=== PATIENT | male | born 1980 | race Caucasian/White ===

== ENCOUNTER 2019-08-19 14:36 | Inpatient (IN) | payer BC, OTHER ==
[~2019-08-19] VITALS: Ht 190.5 cm; Wt 122.8 kg
[2019-08-19 15:32] LABS: Basophils # (auto) 0.1 uL; Basophils % (auto) 0.8 % (0.0-2.0); Eosinophils # (auto) 0.1 uL; Eosinophils % (auto) 0.7 % (0.0-7.0); Hematocrit 46.1 % (41.0-53.0); Hemoglobin 15.9 g/dL (13.5-17.5); Lymphocytes # (auto) 2.8 uL; Mean Corpuscular Hemoglobin 33.1 pg (28.0-32.0); Mean Corpuscular Hgb Conc. 34.4 g/dL (32.0-36.0); Mean Corpuscular Volume 96.2 fL (80.0-100.0); Monocytes # (auto) 0.9 uL; Monocytes % (auto) 7.3 % (0.0-12.0); Neutrophils # (auto) 8.4 uL; Neutrophils % (auto) 68.2 % (37.0-80.0); Nucleated Red Blood Cells % 0.1 %; Platelet Count (auto) 351 10^3/uL (140-450); Red Cell Distribution Width 13.1 % (11.8-14.3); White Blood Cell 12.2 10^3/uL (4.4-10.8)
[2019-08-19 16:05] LABS: INR 1.01 (0.9-1.15); Partial Thromboplastin Time 27.9 sec (23.64-32.05)
[2019-08-19 16:10] LABS: Albumin 3.3 g/dL (3.4-5.0); Anion Gap 10 (5-15); Blood Urea Nitrogen 12 mg/dL (7-18); Calcium 8.6 mg/dL (8.5-10.1); Carbon Dioxide 22 mmol/L (21-32); Chloride 109 mmol/L (98-107); GFR African American 117 mL/min; GFR Non-African American 96 mL/min; Glucose 127 mg/dL (74-106); Magnesium 1.7 mg/dL (1.6-2.6); Potassium 3.4 mmol/L (3.5-5.1); Sodium 141 mmol/L (136-145)
[2019-08-19 16:15] LABS: Alanine Aminotransferase 52 U/L (16-61); Alkaline Phosphatase 50 U/L (45-117); Aspartate Aminotransferase 24 U/L (15-37); Bilirubin, Total 0.4 mg/dL (0.2-1.0); Total Protein 6.8 g/dL (6.4-8.2)
[2019-08-19] MEDS ORDERED: AMIODARONE HCL 150 MG in D5W 5% 100 ML IV ONE (18:00)
[2019-08-19] MEDS ORDERED: AMIODARONE HCL 900 MG in DEXTROSE 500 ML IV SCH (18:09)
[2019-08-19] MEDS ORDERED: ONDANSETRON HCL 4 MG/2 ML VIAL IV ONE (18:15)
[2019-08-19] MEDS ORDERED: MORPHINE SULF INJ 2 MG/ML SYRINGE 1ML IV ONE (18:15)
[2019-08-19] MEDS ORDERED: SODIUM CHLORIDE 0.9% 1,000 ML IV ONE ×2 (18:15→20:30)
[2019-08-19] MEDS ORDERED: ONDANSETRON HCL 4 MG/2 ML VIAL ONE (18:17)
[2019-08-19] MEDS ORDERED: MORPHINE SULF INJ 2 MG/ML SYRINGE 1ML ONE (18:17)
[2019-08-19] MEDS ORDERED: NITROGLYCERIN 50MG/250ML 250 ML IV ONE (19:30)
[2019-08-19] MEDS ORDERED: NITROGLYCERIN 50MG/250ML 250 ML IV SCH (19:30)
[2019-08-19] MEDS ORDERED: ACETAMINOPHEN 500 MG TAB PO PRN (19:45)
[2019-08-19] MEDS ORDERED: LORazepam 0.5 MG TAB PO PRN (19:45)
[2019-08-19] MEDS ORDERED: LACTULOSE 20Gm/30ML SOLN PO PRN (19:45)
[2019-08-19] MEDS ORDERED: MORPHINE SULF INJ 2 MG/ML SYRINGE 1ML IV PRN (19:45)
[2019-08-19] MEDS ORDERED: DEXTROSE (50%) 50ML SYRG IV PRN (19:45)
[2019-08-19] MEDS ORDERED: PROMETHAZINE HCL 25 MG/ML 1ML IV PRN (19:45)
[2019-08-19] MEDS ORDERED: NITROGLYCERIN 0.4 MG SL TAB SL PRN (19:45)
[2019-08-19] MEDS ORDERED: ATORVASTATIN 20 MG TAB PO ONE (20:30)
[2019-08-19] MEDS ORDERED: CLOPIDOGREL BISULFATE 75 MG TAB PO SCH (20:30)
[2019-08-19] MEDS ORDERED: METOPROLOL TARTRATE 25 MG TAB PO ONE (20:30)
[2019-08-19] MEDS ORDERED: ENOXAPARIN SOD 120 MG/0.8 ML SYRINGE SC ONE (20:30)
[2019-08-19] MEDS: SODIUM CHLORIDE 0.9% 1,000 ML IV SCH (21:06)
[2019-08-19] MEDS: ACCU-CHEK COMFORT CURVE STRIP VI SCH (22:10)
--- NOTE | 2019-08-19 23:17 | NUR ---
Telemetry admit from [facility] admitted to Telemetry unit after SBAR received. Patient oriented to Carie cervantes RN, unit, room, bed, and unit policies regarding patient care and visiting hours. Patient now on continuous telemetry monitoring, tele box # 15 and telemetry reading on arrival to unit is SR 60. Patient placed on bedside oxygen, weighed by bed scale and encouraged to call if they need something. All questions and concerns addressed, patient verbalized understanding. Note: Came per stretcher awake alert oriented x 4, placed in the bed comfortably, vital signs checked, routine admission care done.
[2019-08-19] MEDS: traMADol HCL 50 MG TAB PO PRN (23:40)
[2019-08-19 23:50] VITALS: BP 116/83
[2019-08-20] MEDS ORDERED: AMIODARONE HCL 900 MG in DEXTROSE 500 ML IV SCH (00:09)
[2019-08-20 01:52] LABS: Alcohol, Urine < 3.0 mg/dL (0-5); Amphetamine Screen, Urine NEGATIVE (NEGATIVE); Barbiturate Scree,Urine NEGATIVE (NEGATIVE); Benzodiazephine Screen, Urine NEGATIVE (NEGATIVE); Cannabinoid Screen, Urine NEGATIVE (NEGATIVE); Cocaine Screen, Urine NEGATIVE (NEGATIVE); Opiate Scree,Urine POSITIVE (NEGATIVE); Phencyclidine Screen, Urine NEGATIVE (NEGATIVE)
[2019-08-20] MEDS ORDERED: ENOXAPARIN SOD 120 MG/0.8 ML SYRINGE SC SCH (03:45)
[2019-08-20] MEDS: SODIUM CHLORIDE 0.9% 1,000 ML IV SCH ×3 (04:30→21:39)
[2019-08-20 05:30] VITALS: BP 107/67
[2019-08-20] MEDS: ACCU-CHEK COMFORT CURVE STRIP VI SCH (06:51)
[2019-08-20 07:03] LABS: Basophils # (auto) 0.1 uL; Basophils % (auto) 0.8 % (0.0-2.0); Eosinophils # (auto) 0.1 uL; Eosinophils % (auto) 0.9 % (0.0-7.0); Hematocrit 43.5 % (41.0-53.0); Hemoglobin 15.1 g/dL (13.5-17.5); Lymphocytes # (auto) 2.6 uL; Lymphocytes % (auto) 23.7 % (10.0-50.0); Mean Corpuscular Hemoglobin 33.2 pg (28.0-32.0); Mean Corpuscular Hgb Conc. 34.7 g/dL (32.0-36.0); Mean Corpuscular Volume 95.9 fL (80.0-100.0); Monocytes # (auto) 0.8 uL; Monocytes % (auto) 7.6 % (0.0-12.0); Neutrophils # (auto) 7.3 uL; Platelet Count (auto) 315 10^3/uL (140-450); Red Blood Cells 4.53 10^6/uL (4.5-5.90); Red Cell Distribution Width 13.2 % (11.8-14.3); White Blood Cell 10.8 10^3/uL (4.4-10.8)
[2019-08-20 07:26] LABS: Chloride 108 mmol/L (98-107); Potassium 3.9 mmol/L (3.5-5.1); Sodium 141 mmol/L (136-145)
--- NOTE | 2019-08-20 07:35 | NUR ---
Report given to Freida Melgoza, patient is resting no distress.
[2019-08-20 07:39] LABS: Alanine Aminotransferase 39 U/L (16-61); Albumin 3.1 g/dL (3.4-5.0); Alkaline Phosphatase 47 U/L (45-117); Anion Gap 5 (5-15); Aspartate Aminotransferase 15 U/L (15-37); BUN/Creatinine Ratio 14.6; Bilirubin, Total 0.6 mg/dL (0.2-1.0); Blood Urea Nitrogen 12 mg/dL (7-18); Calcium 8.2 mg/dL (8.5-10.1); Carbon Dioxide 28 mmol/L (21-32); Cholesterol 193 mg/dL (< 200); GFR African American 134 mL/min; GFR Non-African American 111 mL/min; Glucose 95 mg/dL (74-106); HDL Cholesterol 47 mg/dL (40-59); LDL Cholesterol 121 mg/dL (< 100); Total Protein 6.3 g/dL (6.4-8.2); Triglycerides 183 mg/dL (< 150)
[2019-08-20 09:00] VITALS: BP 126/60
[2019-08-20] MEDS: traMADol HCL 50 MG TAB PO PRN (09:13)
[2019-08-20] MEDS: METOPROLOL TARTRATE 25 MG TAB PO SCH ×2 (09:38→21:40)
[2019-08-20] MEDS: ENOXAPARIN SOD 120 MG/0.8 ML SYRINGE SC SCH ×2 (09:56→21:41)
[2019-08-20] MEDS: ASPirin 81 mg TAB PO SCH (09:56)
[2019-08-20] MEDS: CLOPIDOGREL BISULFATE 75 MG TAB PO SCH (09:56)
[2019-08-20] MEDS ORDERED: ADENOSINE 103 MG in GIVE UN-DILUTED 0 ML IV STA (10:03)
--- NOTE | 2019-08-20 10:33 | NUR ---
TAKEN TO NUCLEAR MEDICINE FOR STRESS TEST. NO SIGNS OF DISTRESS.
[2019-08-20 11:58] VITALS: BP 129/78
[2019-08-20 13:00] VITALS: BP 137/77
--- NOTE | 2019-08-20 16:49 | NUR ---
assessment Per consult needs PCP. Kinsey Lubin to see patient for PCP. Addendum: 08/20/19 at 1649 by Kinsey Helton Amended: Links added.
[2019-08-20 17:00] VITALS: BP 128/82
[2019-08-20 21:36] VITALS: BP 123/69
[2019-08-20] MEDS: ATORVASTATIN 20 MG TAB PO SCH (21:40)
[2019-08-21 04:39] VITALS: BP 106/77
[2019-08-21] MEDS: SODIUM CHLORIDE 0.9% 1,000 ML IV SCH ×4 (06:51→23:56)
--- NOTE | 2019-08-21 07:20 | NUR ---
Endorsed care to day shift RN. Patient verbalized no distress/sob/pain during the night.
[2019-08-21 09:00] VITALS: BP 136/77
--- NOTE | 2019-08-21 09:29 | NUR ---
PATIENT HAS AN ANOINTMENT WITH PRIMARY CARE PHYSICIAN DR DIAZ ON 08/27/19 AT 9:15 A.M.
[2019-08-21] MEDS ORDERED: LACTULOSE 20Gm/30ML SOLN PO ONE (09:30)
[2019-08-21] MEDS: CLOPIDOGREL BISULFATE 75 MG TAB PO SCH (09:54)
[2019-08-21] MEDS: ENOXAPARIN SOD 120 MG/0.8 ML SYRINGE SC SCH ×2 (09:54→22:07)
[2019-08-21] MEDS: ASPirin 81 mg TAB PO SCH (09:54)
[2019-08-21] MEDS: METOPROLOL TARTRATE 25 MG TAB PO SCH ×2 (09:55→21:58)
[2019-08-21 13:00] VITALS: BP 115/74
[2019-08-21 17:00] VITALS: BP 101/64
--- NOTE | 2019-08-21 20:15 | NUR ---
Opening Shift Note Assumed care of patient, awake, alert, and oriented. No S/S of distress/SOB or pain. Bed in lowest/locked position, bed rails up x2, call light within reach. Instructed on POC and to call for assist PRN. Will continue to monitor for changes Q1hr and PRN.
[2019-08-21 21:47] VITALS: BP 104/60
[2019-08-21] MEDS: ATORVASTATIN 20 MG TAB PO SCH (22:07)
--- NOTE | 2019-08-22 03:30 | NUR ---
RECEIVED REPORT. ASSUMED CARE.
[2019-08-22] MEDS: SODIUM CHLORIDE 0.9% 1,000 ML IV SCH ×5 (04:58→20:30)
[2019-08-22 05:02] VITALS: BP 102/60
[2019-08-22 06:28] LABS: Basophils # (auto) 0.1 uL; Eosinophils # (auto) 0.2 uL; Eosinophils % (auto) 1.2 % (0.0-7.0); Hematocrit 47.3 % (41.0-53.0); Hemoglobin 16.5 g/dL (13.5-17.5); Lymphocytes # (auto) 2.5 uL; Lymphocytes % (auto) 19.3 % (10.0-50.0); Mean Corpuscular Hgb Conc. 34.8 g/dL (32.0-36.0); Mean Corpuscular Volume 94.8 fL (80.0-100.0); Monocytes % (auto) 7.3 % (0.0-12.0); Neutrophils # (auto) 9.2 uL; Neutrophils % (auto) 71.2 % (37.0-80.0); Nucleated Red Blood Cells % 0.1 %; Platelet Count (auto) 316 10^3/uL (140-450); Red Blood Cells 4.99 10^6/uL (4.5-5.90); Red Cell Distribution Width 12.8 % (11.8-14.3)
[2019-08-22 06:38] LABS: INR 1.07 (0.9-1.15); Partial Thromboplastin Time 39.9 sec (23.64-32.05)
[2019-08-22 06:44] LABS: Potassium 3.9 mmol/L (3.5-5.1)
[2019-08-22 06:48] LABS: BUN/Creatinine Ratio 16.9; Calcium 8.6 mg/dL (8.5-10.1)
--- NOTE | 2019-08-22 07:35 | NUR ---
REMAINS NPO TO CCL.
[2019-08-22] MEDS ORDERED: IOHEXOL 350 MG/ML 100ML IJ ONE ×3 (07:36→08:15)
[2019-08-22] MEDS ORDERED: LIDOCAINE 2%HCL (LOCAL ANESTH.) INJ 20ML MDV ONE (07:36)
[2019-08-22] MEDS ORDERED: HEPARIN SODIUM (PORCINE) 5000 UNITS/ML 1ML VIAL ONE (08:08)
[2019-08-22] MEDS ORDERED: ANGIOMAX 250 MG VIAL IV ONE (08:08)
[2019-08-22] MEDS ORDERED: MIDAZOLAM HCL 1MG/1ML-2 ML VIAL ONE (08:09)
[2019-08-22] MEDS ORDERED: fentaNYL CITRATE 100 MCG/2 ML VL ONE (08:09)
[2019-08-22] MEDS ORDERED: SODIUM CHL 0.9% 0 ML ONE (08:09)
[2019-08-22] MEDS ORDERED: VERAPAMIL 2.5MG/ML INJ 2ML VIAL IV ONE (08:09)
--- NOTE | 2019-08-22 09:00 | NUR ---
PATIENT WAS NOT IN THE ROOM FOR 0900 VITAL SIGNS.
[2019-08-22] MEDS: CLOPIDOGREL BISULFATE 75 MG TAB PO SCH (10:00)
--- NOTE | 2019-08-22 10:27 | NUR ---
RETURNS FROM CCL RECOVERY. RADIAL BAND TO RT WRIST STABLE. NO LEAKING, BRUISING OR HEMATOMA PRESENT.EXPLAINED IMPORTANCE OF NOT FLEXING WRIST. POSITIVE RADIAL PULSE PALPATED. INSTANT CAP REFILL TO THUMB. NO LOSS OF SENSATION.
[2019-08-22 10:45] VITALS: BP 107/59
--- NOTE | 2019-08-22 11:44 | NUR ---
RADIAL BAND RELEASED ORDERED 2CC AT A TIME. SITE REMAINS STABLE. REINFORCED INSTRUCTIONS TO KEEP WRIST STILL AND NOT BEND OR GRASP.
--- NOTE | 2019-08-22 11:45 | NUR ---
RADIAL BAND REMOVED. SITE REMAINS STABLE. SMALL GAUZE WITH OCCLUSIVE DSG APPLIED. EXPLAINED CARE OF SITE NOT TO GET WET. NO REPEATED MOVEMENTS OR LIFTING OBJECTS WITH RT HAND. ASSIST WITH LUNCH TRAY FINGER FOODS SERVED. PT DEMONSTRATES COMPLIANCE WITH RESTRICTIONS.
[2019-08-22 12:37] VITALS: BP 111/67
[2019-08-22] MEDS: METOPROLOL TARTRATE 25 MG TAB PO SCH ×2 (13:00→15:14)
[2019-08-22] MEDS: ASPirin 81 mg TAB PO SCH (13:01)
[2019-08-22 17:00] VITALS: BP 109/60
--- NOTE | 2019-08-22 19:00 | NUR ---
RESTFUL. DENIES PAIN. RT RADIAL SITE REMAINS BENIGN. ASKS IF HE CAN TAKE OUT THE IV TO LEFT AC SENSE HE HIS PLANNED TO BE DC TOMORROW. EXPLAINED THE IMPORTANCE OF IV ACCESS WHILE HOSPITALIZED. PT AGREES TO KEEP IN THE IV.
--- NOTE | 2019-08-22 19:35 | NUR ---
Opening Shift Note Assumed care of patient, awake and alert oriented x4. No S/S of distress/SOB or pain noted. Bed is in lowest locked position with bed rails up x2 and call light is within reach of the patient. Instructed on POC and to call for assist PRN. Addendum: 08/23/19 at 0027 by Glo De Paz RN RN right wrist dressing is dry and intact.
[2019-08-22] MEDS: ATORVASTATIN 20 MG TAB PO SCH (21:33)
[2019-08-22 22:00] VITALS: BP 116/67
[2019-08-23] MEDS: SODIUM CHLORIDE 0.9% 1,000 ML IV SCH (04:00)
[2019-08-23 05:00] VITALS: BP 104/64
[2019-08-23 09:29] VITALS: BP 114/66
[2019-08-23] MEDS: CLOPIDOGREL BISULFATE 75 MG TAB PO SCH (10:00)
[2019-08-23] MEDS: ASPirin 81 mg TAB PO SCH (10:30)
[2019-08-23] MEDS: METOPROLOL TARTRATE 25 MG TAB PO SCH (10:30)
--- NOTE | 2019-08-23 11:06 | NUR ---
DR. Tommy BURLESON AND JULIANNE MEIER ROUND ON PT. TO DC HOME NOW. IV TO LEFT AC DC'D CANNULA INTACT. TEACHING REGARDING LIFESTYLE CHANGES, STRESS REDUCTION.
[2019-08-23 11:28] VITALS: BP 139/85
== END 2019-08-23 11:45 | disposition home or self-care (01) | DRG 287 ==
LOC: EDBD 14:36 → ER 14:39 → EDBD 14:39 → TELE 14:40 → TELE-EAST 23:07
PROVIDERS: ADMIT Internal Medicine; ATTEND Family Medicine
PROC: 4A023N7 Measurement of Cardiac Sampling and Pressure, Left Heart, Percutaneous Approach (ICD-10-PCS; principal; 2019-08-22)
PROC: B2111ZZ Fluoroscopy of Multiple Coronary Arteries using Low Osmolar Contrast (ICD-10-PCS; 2019-08-22)
PROC: B2151ZZ Fluoroscopy of Left Heart using Low Osmolar Contrast (ICD-10-PCS; 2019-08-22)
DX: R07.89 Other chest pain (principal); I42.9 Cardiomyopathy, unspecified; I47.1 Supraventricular tachycardia; J98.11 Atelectasis; E66.9 Obesity, unspecified; E78.5 Hyperlipidemia, unspecified; E87.6 Hypokalemia; F17.210 Nicotine dependence, cigarettes, uncomplicated; G47.30 Sleep apnea, unspecified; H57.02 Anisocoria; Z82.49 Family history of ischemic heart disease and other diseases of the circulatory system; Z83.3 Family history of diabetes mellitus; Z90.89 Acquired absence of other organs; Z68.33 Body mass index [BMI] 33.0-33.9, adult
CPT/HCPCS: 36415; 70450; 71045; 78452; 80048; 80053; 80061; 80307; 82550; 82565; 82962; 83036; 83735; 83880; 84439; 84443; 84484; 85025; 85379; 85610; 85652; 85730; 86141; 93005; 93017; 93306; 93458; 96361; 96374; 96375; 99152; 99153; G0378; J0153; J2250; J2405

== ENCOUNTER → 2019-11-07 | Emergency (ER) | payer BC ==
[~2019-11-07] VITALS: Ht 190.5 cm; Wt 120.2 kg
[~2019-11-07] MED LIST: NITROGLYCERIN 0.4 MG SL TAB SL ONE; SODIUM CHLORIDE 0.9% 1,000 ML IV ONE
[2019-11-07 09:04] LABS: Basophils # (auto) 0.1 10 ^3/uL (0-0.2); Eosinophils # (auto) 0.1 10 ^3/uL (0-0.8); Eosinophils % (auto) 0.8 % (0.0-7.0); Hematocrit 49.9 % (41.0-53.0); Hemoglobin 16.9 g/dL (13.5-17.5); Lymphocytes % (auto) 18.5 % (10.0-50.0); Mean Corpuscular Hemoglobin 32.3 pg (28.0-32.0); Mean Corpuscular Hgb Conc. 33.9 g/dL (32.0-36.0); Mean Corpuscular Volume 95.2 fL (80.0-100.0); Monocytes # (auto) 0.7 10 ^3/uL (0-1.3); Monocytes % (auto) 6.4 % (0.0-12.0); Neutrophils # (auto) 8.1 10 ^3/uL (1.6-8.6); Neutrophils % (auto) 73.3 % (37.0-80.0); Nucleated Red Blood Cells % 0.1 %; Platelet Count (auto) 364 10^3/uL (140-450); Red Blood Cells 5.24 10^6/uL (4.5-5.90); Red Cell Distribution Width 12.4 % (11.8-14.3)
[2019-11-07 09:19] LABS: Alanine Aminotransferase 49 U/L (16-61); Albumin 3.8 g/dL (3.4-5.0); Anion Gap 11 (5-15); Blood Urea Nitrogen 12 mg/dL (7-18); Calcium 9.2 mg/dL (8.5-10.1); Carbon Dioxide 22 mmol/L (21-32); Chloride 105 mmol/L (98-107); Glucose 107 mg/dL (74-106); INR 1.06 (0.9-1.15); Potassium 3.7 mmol/L (3.5-5.1); Sodium 138 mmol/L (136-145)
[2019-11-07 09:24] LABS: Alkaline Phosphatase 63 U/L (45-117); Aspartate Aminotransferase 21 U/L (15-37); BUN/Creatinine Ratio 12.1; Bilirubin, Total 0.7 mg/dL (0.2-1.0); GFR African American 108 mL/min; GFR Non-African American 89 mL/min; Total Protein 7.6 g/dL (6.4-8.2)
[2019-11-07 09:41] LABS: Urine Bacteria NONE SEEN /hpf (None Seen); Urine Blood Negative /uL (Negative); Urine Specific Gravity 1.013 (1.001-1.035); Urine WBC <1 /hpf (0 - 3)
[2019-11-07 09:58] LABS: Alcohol, Urine < 3.0 mg/dL (0-5); Amphetamine Screen, Urine NEGATIVE (NEGATIVE); Barbiturate Scree,Urine NEGATIVE (NEGATIVE); Benzodiazephine Screen, Urine NEGATIVE (NEGATIVE); Cannabinoid Screen, Urine NEGATIVE (NEGATIVE); Cocaine Screen, Urine NEGATIVE (NEGATIVE); Opiate Scree,Urine NEGATIVE (NEGATIVE); Phencyclidine Screen, Urine NEGATIVE (NEGATIVE)
[2019-11-07 13:07] VITALS: BP 102/58
== END | disposition home or self-care (01) ==
LOC: ER 08:22
DX: I25.10 Atherosclerotic heart disease of native coronary artery without angina pectoris (principal); R11.2 Nausea with vomiting, unspecified; I25.2 Old myocardial infarction; F17.210 Nicotine dependence, cigarettes, uncomplicated; Z90.89 Acquired absence of other organs
CPT/HCPCS: 36415; 71046; 80053; 80307; 81001; 83735; 84443; 84484; 85025; 85610; 85730; 93005; 96360; 96361; 99285; J7030